=== PATIENT | female | born 1960 | race Caucasian/White ===

== ENCOUNTER 2017-06-25 10:31 | Emergency (ER) | payer OTHER ==
[~2017-06-25] VITALS: Ht 167.6 cm; Wt 104.3 kg
[~2017-06-25 10:31] MED LIST: CIPRO500 MG PO; FLAGYL500 MG PO; TRAMADOL 50 MG50 MG PO
[2017-06-25 10:56] LABS: URINE BILIRUBIN NEGATIVE (Negative); URINE BLOOD TRACE (Negative); URINE CLARITY CLEAR; URINE COLOR YELLOW; URINE GLUCOSE-RANDOM NEGATIVE (Negative); URINE KETONES NEGATIVE (Negative); URINE LEUKOCYTES-REFLEX NEGATIVE (Negative); URINE NITRITE-REFLEX NEGATIVE (Negative); URINE PROTEIN NEGATIVE (Negative); URINE SPECIFIC GRAVITY <= 1.005 (1.005-1.030); URINE UROBILINOGEN 0.2 E.U./dl (0.2-1.0)
[2017-06-25 11:04] LABS: ABSOLUTE BASOPHILS 0.1 thou/uL (0.0-0.2); ABSOLUTE EOSINOPHILS 0.1 thou/uL (0.0-0.7); ABSOLUTE LYMPHOCYTES 1.7 thou/uL (0.8-5.3); ABSOLUTE MONOCYTES 0.7 thou/uL (0.0-1.2); BASOPHILS 0.6 %; EOSINOPHILS 1.1 %; HEMATOCRIT 41.1 % (37.0-47.0); HEMOGLOBIN 14.3 gm/dL (12.0-15.0); LYMPHOCYTES 14.5 %; MCH 33.1 pg (26.0-34.0); MCHC 34.8 g/dL (28.0-37.0); MCV 95.1 fL (80.0-100.0); MONOCYTES 5.8 %; MPV 8.1 fl. (7.2-11.1); NUCLEATED RBCS 0 /100WBC; PLATELET COUNT* 336 thou/uL (150-400); RBC 4.32 mil/uL (4.20-5.00); RDW-CV 13.9 % (10.5-14.5); WBC 11.5 thou/uL (4.0-11.0)
[2017-06-25 11:12] LABS: CALCIUM 9.2 mg/dL (8.5-10.1); CREATININE 0.8 mg/dL (0.6-1.3); POTASSIUM 3.3 mmol/L (3.5-5.1)
[2017-06-25 11:16] LABS: ALBUMIN 3.7 g/dL (3.4-5.0); TOTAL BILIRUBIN 0.8 mg/dL (<0.1-1.0); TOTAL PROTEIN 7.8 g/dL (6.4-8.2)
[2017-06-25] MEDS ORDERED: HYDROCODONE-AP1 EAC6 PO (12:12)
[2017-06-25] MEDS ORDERED: ONDANSETRON HCL4 M2 PO (12:12)
[2017-06-25] MEDS ORDERED: CIPRO500 MG PO (12:12)
[2017-06-25] MEDS ORDERED: FLAGYL500 MG PO (12:12)
[2017-06-25 12:26] VITALS: BP 110/72
== END 2017-06-25 12:26 | disposition home or self-care (01) ==
LOC: M.ERS 10:31
PROVIDERS: Physician Assistant
DX: K57.92 Diverticulitis of intestine, part unspecified, without perforation or abscess without bleeding (principal); Z88.5 Allergy status to narcotic agent